=== PATIENT | female | born 1990 | race Caucasian/White ===

== ENCOUNTER 2023-11-10 05:00 | Inpatient (IN) | payer BC, OTHER ==
[2023-11-10] MEDS ORDERED: HYDROcodone/Acetaminophen 5/325 mg Tablet PO PRN (22:57)
[2023-11-10] MEDS ORDERED: Carboprost 250 MCG/ML AMP IM PRN (22:57)
[2023-11-10] MEDS ORDERED: Promethazine HCl 25 MG/ML VIAL IM PRN (22:57)
[2023-11-10] MEDS ORDERED: fentaNYL 50 mcg/mL 1 mL Vial SLOW IVP PRN (22:57)
[2023-11-10] MEDS ORDERED: Ibuprofen 800 MG TAB PO PRN (22:57)
[2023-11-10] MEDS ORDERED: Misoprostol 200 MCG TAB PR PRN (22:57)
[2023-11-10] MEDS ORDERED: Tranexamic Acid 1,000 MG/10 ML VIAL IVP PRN (22:57)
[2023-11-10] MEDS ORDERED: hydrALAZINE 20 MG/ML VIAL SLOW IVP PRN (22:57)
[2023-11-10] MEDS ORDERED: Acetaminophen 500 MG TAB PO PRN (22:57)
[2023-11-10] MEDS ORDERED: Lidocaine 1% (PF) 30 ML VIAL SC PRN (22:57)
[2023-11-10] MEDS ORDERED: Methylergonovine 0.2 MG/ML VIAL IM PRN (22:57)
[2023-11-10] MEDS ORDERED: Diphenoxylate HCl/Atropine Tablet PO PRN (22:57)
[2023-11-10] MEDS ORDERED: Ondansetron PF 4 MG/2 ML Vial IVP PRN (22:57)
[2023-11-10 23:07] VITALS: BMI 27.6
[2023-11-10] MEDS ORDERED: Oxytocin 30 units/NS 500 ML 500 ML IV SCH ×3 (23:15)
[2023-11-10 23:48] LABS: Hematocrit 30.9 % (34.9-44.5); Hemoglobin 9.8 g/dL (12.0-15.5); Mean Corpuscular HGB CONC 31.7 g/dL (32.0-36.0); Mean Corpuscular Hemoglobin 27.5 pg (27.0-33.0); Mean Corpuscular Volume 86.6 fl (81.6-98.3); Mean Platelet Volume 10.4 fl (7.4-10.4); Platelet Count 248 10x3/uL (150-450); RBC Distribution Width 15.6 % (11.5-14.5); Red Blood Cell (RBC) Count 3.57 10x6/uL (3.90-5.03); White Blood Cell (WBC) Count 9.5 10x3/uL (3.5-10.5)
[2023-11-10] MEDS: Misoprostol 100 MCG TAB PO SCH (23:59)
[2023-11-11 00:15] LABS: HBSAg Index 0.19 S/CO (0-0.99); Hep B Surf Ag - L&D Non-Reactive S/CO (NonReactive)
[2023-11-11 00:16] LABS: Syphilis Antibody Nonreactive (Nonreactive); Syphilis Antibody Index 0.04 S/CO (<1.00 Non-Reactive)
[2023-11-11] MEDS: Misoprostol 100 MCG TAB PO SCH ×3 (03:47→14:59)
[2023-11-11] MEDS: Lactated Ringer's 1,000 ML IV SCH ×2 (07:30→15:53)
[2023-11-11] MEDS ORDERED: fentaNYL/Ropivacaine Epidural 100 ML ONE (08:13)
[2023-11-11] MEDS ORDERED: Naloxone HCl 0.4 mg/ml Vial IVP PRN ×2 (10:12)
[2023-11-11] MEDS ORDERED: Moisturizing Cream (Eucerin) 113 GM JAR TOP PRN (10:12)
[2023-11-11] MEDS ORDERED: ePHEDrine Sulfate 50 MG/10 ML VIAL SLOW IVP PRN (10:12)
[2023-11-11] MEDS ORDERED: diphenhydrAMINE 50 MG/ML VIAL IVP PRN (10:12)
[2023-11-11] MEDS ORDERED: Acetaminophen 325 MG TAB PO PRN (10:12)
[2023-11-11] MEDS ORDERED: Promethazine HCl 25 MG/ML VIAL IM PRN (10:12)
[2023-11-11] MEDS ORDERED: Lactated Ringer's 500 ML IV PRN (10:12)
[2023-11-11] MEDS ORDERED: Ondansetron PF 4 MG/2 ML Vial IVP PRN ×2 (10:12→14:53)
[2023-11-11] MEDS ORDERED: Communication Order-Pharmacy FS SCH (10:15)
[2023-11-11] MEDS ORDERED: fentaNYL 2 mcg/Ropivacaine 0.2% Epidural 100 ML CADD EPIDURAL SCH (10:15)
[2023-11-11] MEDS ORDERED: Preparation H Ointment 28 GM TUBE PR PRN (14:53)
[2023-11-11] MEDS ORDERED: hydrALAZINE 20 MG/ML VIAL SLOW IVP PRN (14:53)
[2023-11-11] MEDS ORDERED: Lanolin Ointment 7 GM TUBE TOP PRN (14:53)
[2023-11-11] MEDS ORDERED: diphenhydrAMINE 25 MG CAP PO PRN (14:53)
[2023-11-11] MEDS ORDERED: Milk Of Magnesia 30 ML UDCUP PO PRN (14:53)
[2023-11-11] MEDS ORDERED: Bisacodyl 10 MG SUPP PR PRN (14:53)
[2023-11-11] MEDS ORDERED: Boostrix 0.5 ML (Tdap) VIAL (>/=7 yrs of age) IM ONE (14:53)
[2023-11-11] MEDS ORDERED: HYDROcodone/Acetaminophen 5/325 mg Tablet PO PRN (14:53)
[2023-11-11] MEDS: Ferrous Sulfate 325 MG TAB PO SCH (15:45)
[2023-11-11] MEDS: Docusate 100 MG CAP PO SCH (21:02)
[2023-11-11] MEDS: Ibuprofen 800 MG TAB PO SCH (21:02)
[2023-11-12] MEDS: Ibuprofen 800 MG TAB PO SCH ×2 (05:45→15:03)
[2023-11-12 07:57] VITALS: BP 109/54; TEMP 97.8
[2023-11-12] MEDS: Docusate 100 MG CAP PO SCH (08:12)
[2023-11-12] MEDS: Ferrous Sulfate 325 MG TAB PO SCH (08:12)
[2023-11-12] MEDS ORDERED: Prenatal Vitamin 1 TAB PO SCH (09:00)
== END 2023-11-12 16:15 | disposition home or self-care (01) | DRG 807 ==
LOC: CSHLD 22:45 → CSHPP 11-11 14:45
PROVIDERS: ADMIT Family Medicine; ATTEND Family Medicine
PROC: 10E0XZZ Delivery of Products of Conception, External Approach (ICD-10-PCS; principal; 2023-11-11)
PROC: 10907ZC Drainage of Amniotic Fluid, Therapeutic from Products of Conception, Via Natural or Artificial Opening (ICD-10-PCS; 2023-11-11)
PROC: 3E0P7VZ Introduction of Hormone into Female Reproductive, Via Natural or Artificial Opening (ICD-10-PCS; 2023-11-11)
DX: O24.420 Gestational diabetes mellitus in childbirth, diet controlled (principal); Z37.0 Single live birth; Z3A.39 39 weeks gestation of pregnancy
CPT/HCPCS: 36415; 85027; 86780; 86850; 86870; 86900; 86901; 87340; J2405; J2590; J7120